=== PATIENT | male | born 1960 | race Caucasian/White ===

== ENCOUNTER 2022-04-30 06:11 | Day surgery (SDC) | payer MEDICARE, OTHER ==
[~2022-04-30] VITALS: Ht 177.8 cm; Wt 97.5 kg
[2022-04-30] MEDS ORDERED: fentaNYL citrate 0.05 MG/ML VIAL ONE (07:43)
[2022-04-30] MEDS ORDERED: LIDOCAINE 2% 100 MG/5 ML UJET TP ONE (07:43)
[2022-04-30] MEDS ORDERED: fentaNYL citrate 0.05 MG/ML VIAL IVP ONE (08:30)
== END 2022-04-30 08:43 | disposition home or self-care (01) ==
LOC: MDS 06:11 → MMU 06:18 → MDS 08:43
PROVIDERS: ATTEND Internal Medicine Gastroenterology
DX: Z12.11 Encounter for screening for malignant neoplasm of colon (principal); K63.5 Polyp of colon; Z88.5 Allergy status to narcotic agent; Z79.899 Other long term (current) drug therapy; Z20.822 Contact with and (suspected) exposure to COVID-19
CPT/HCPCS: 45385; 87426; J3010